=== PATIENT | female | born 1960 | race Caucasian/White ===

== ENCOUNTER 2020-09-18 08:15 | Emergency (ER) | payer OTHER, SELFPAY ==
[2020-09-18 08:28] VITALS: BP 139/85; PULSE 96; RESP 16; TEMP 36.8; O2SAT 100; BMI 29.2
--- NOTE | 2020-09-18 08:50 | ED_ITS ---
HPI - Overdose General Chief Complaint: Overdose Stated Complaint: ? OVERDOSE Time Seen by Provider: 09/18/20 08:40 Source: patient Mode of arrival: ambulatory Limitations: no limitations History of Present Illness HPI Narrative: accidentally took 10 0.5mg ativan - wrongly put pill container together, not SI attempt very anxious on arrival MD complaint: accidental overdose Onset (ago): hour(s) (745am) Timing confirmed by: family member Context: Accidental Overdose: medication error Treatments Prior to Arrival: none Review of Systems Review of Systems: Constitutional : No Fever, No Chills, ENT/Mouth : No sore throat, No Rhinorrhea Eyes: No Eye Pain, No Swelling, No Redness Cardiovascular : No Chest Pain, No SOB Respiratory : No Cough, No Sputum Gastrointestinal : No Nausea, No Vomiting Genitourinary : No Dysuria, No Urinary Frequency Musculoskeletal : No joint pain, No Myalgias Skin : No Skin Lesions, No rash Neuro : No Weakness, No Numbness, No Dizziness, No Headache Psych : pos Anxiety/Panic, No Depression PMFSH Past Medical History Attestation statement: The following information was validated with the patient. Medical History Anxiety Fibromyalgia GERD (gastroesophageal reflux disease) Social History Social History (Updated 09/18/20 @ 08:54 by Carolee Vazquez DO) Alcohol intake: never Smoking Status: Never smoker Advance Directives: No Advance Directives Information Provided: No Patient : No Physical Exam Vital Signs: Vital Signs: Last Vital Signs Temp 98.3 F 09/18/20 08:28 Pulse 96 09/18/20 08:28 Resp 16 09/18/20 08:28 BP 139/85 09/18/20 08:28 Pulse Ox 100 09/18/20 08:28 Body Mass Index 29.2 Appearance: Alert. Oriented X3. No acute distress. Anxious Eyes: Pupils equal, round and reactive to light. ENT: Pharynx normal. Neck: Normal inspection. Neck supple. CVS: Normal heart rate and rhythm. Pulses normal. Respiratory: No respiratory distress. Breath sounds normal. Abdomen: Soft and nontender. Skin: Skin warm and dry. Normal skin color. Normal skin turgor. Extremities: No lower extremity edema. No calf ttp Neuro: Oriented X 3. No motor deficit. No sensory deficit. Course Course Course Narrative: obs x 1 hour no signs of sedation, no resp depression stable for DC MDM - Overdose MDM Narrative Medical decision making narrative: 60 yo female with anxiety accidental ingestion of 5mg ativan adamantly denies SI, almost 1 hour out and still anxious, will observe x 1 hour, feed patient, and patient plan to leave to go to [facility], given precautions and reasons to return Discharge Plan Discharge Clinical Impression: Accidental drug ingestion Qualifiers: Encounter type: initial encounter Qualified Code(s): T50.901A - Poisoning by unspecified drugs, medicaments and biological substances, accidental (unintentional), initial encounter Patient Disposition: Home, Self-Care Instructions: Benzodiazepine Overdose (ED) Additional Instructions: return to ED for any worsening symptoms or concerns any sleepiness, inability to walk, slurred speech, call 911
[2020-09-18 10:17] VITALS: BP 117/72; PULSE 86; RESP 16; TEMP 36.7; O2SAT 99
== END 2020-09-18 10:19 | disposition home or self-care (01) ==
PROVIDERS: Emergency Provider Emergency Medicine
DX: T42.4X1A Poisoning by benzodiazepines, accidental (unintentional), initial encounter (principal); Y92.9 Unspecified place or not applicable; Z79.899 Other long term (current) drug therapy
CPT/HCPCS: 99284